=== PATIENT | male | born 1975 | race Caucasian/White ===

== ENCOUNTER 2019-09-12 09:56 | Outpatient (REF) | payer BC, SELFPAY ==
[2019-09-12 20:57] LABS: ALT 28 U/L (16-63); AST 19 U/L (15-37); Alkaline Phosphatase 67 U/L (46-116); Anion Gap 16.8 mmol/L (3-11); Bilirubin, Total 0.4 mg/dL (0.2-1.0); CO2 26.2 mmol/L (21.0-32.0); CREATININE 0.79 mg/dL (0.70-1.30); Calcium 8.8 mg/dL (8.5-10.1); Chloride 100 mmol/L (98-107); Cholesterol 242 mg/dL (<200); Glucose 111 mg/dL (74-106); HDL Cholesterol 34 mg/dL (40-60); Potassium 4.3 mmol/L (3.5-5.1); Sodium 143 mmol/L (136-145); Total Protein 7.3 g/dL (6.4-8.2); Triglyceride 486 mg/dL (<150)
[2019-09-12 20:59] LABS: Hemoglobin A1C 5.5 % (3.8-5.6)
[2019-09-12 21:19] LABS: BUN 14 mg/dL (7-18)
[2019-09-12 21:39] LABS: LDL CHOLESTEROL 129 mg/dL (<100)
== END 2019-09-12 10:16 ==
LOC: NCHCN 09:56
PROVIDERS: PCP Nurse Practitioner Family; Visit Provider Nurse Practitioner Family
DX: F32.9 Major depressive disorder, single episode, unspecified (principal); M77.9 Enthesopathy, unspecified; M54.5 Low back pain; E66.9 Obesity, unspecified
CPT/HCPCS: 80053; 80061; 83721; 83036

== ENCOUNTER 2019-10-16 09:34 | Outpatient (REF) | payer BC, SELFPAY ==
[2019-10-16 21:42] LABS: Calculated LDL 140 mg/dL (<100); Cholesterol 221 mg/dL (<200); HDL Cholesterol 43 mg/dL (40-60); Triglyceride 194 mg/dL (<150)
== END 2019-10-16 09:54 ==
LOC: NCHCN 09:34
PROVIDERS: PCP Nurse Practitioner Family; Visit Provider Nurse Practitioner Family
DX: Z00.00 Encounter for general adult medical examination without abnormal findings (principal); E78.5 Hyperlipidemia, unspecified; M77.9 Enthesopathy, unspecified; E66.9 Obesity, unspecified; F32.9 Major depressive disorder, single episode, unspecified
CPT/HCPCS: 80061

== ENCOUNTER 2019-12-30 10:50 | Outpatient (REF) | payer BC, SELFPAY ==
[2019-12-30 21:46] LABS: ALT 48 U/L (16-63); AST 22 U/L (15-37); Albumin 4.3 g/dL (3.4-5.0); Alkaline Phosphatase 72 U/L (46-116); Bilirubin, Total 1.5 mg/dL (0.2-1.0); Calculated LDL 86 mg/dL (<100); Cholesterol 164 mg/dL (<200); HDL Cholesterol 41 mg/dL (40-60); Total Protein 7.6 g/dL (6.4-8.2); Triglyceride 186 mg/dL (<150)
== END 2019-12-30 11:10 ==
LOC: NCHCN 10:50
PROVIDERS: PCP Nurse Practitioner Family; Visit Provider Nurse Practitioner Family
DX: E78.5 Hyperlipidemia, unspecified (principal)
CPT/HCPCS: 80061; 80076

== ENCOUNTER 2020-02-17 12:11 | Outpatient (REF) | payer BC, SELFPAY ==
[2020-02-17 21:02] LABS: ALT 57 U/L (16-63); AST 31 U/L (15-37); Alkaline Phosphatase 71 U/L (46-116); Bilirubin, Direct 0.14 mg/dL (0.00-0.20); Bilirubin, Total 0.6 mg/dL (0.2-1.0); Total Protein 7.3 g/dL (6.4-8.2)
== END 2020-02-17 12:31 ==
LOC: NCHCN 12:11
PROVIDERS: PCP Nurse Practitioner Family; Visit Provider Nurse Practitioner Family
DX: R17 Unspecified jaundice (principal)
CPT/HCPCS: 80076

== ENCOUNTER 2022-11-14 16:33 | Outpatient (REF) | payer OTHER, SELFPAY ==
[2022-11-14 16:01] LABS: HCT 48.6 % (40.0-50.0); HGB 16.3 g/dL (13.5-17.5); MCH 30.1 pg (27.0-33.0); MCHC 33.5 % (32.0-36.0); MCV 90 fL (80-95); MPV 10.8 fL (8.0-11.0); Platelet Count 287 10^3/uL (130-400); RBC 5.42 10^6/uL (4.36-5.78); RDW-SD 42.1 fL; WBC 8.36 10^3/uL (4.4-10.8)
[2022-11-14 16:29] LABS: Hemoglobin A1C 5.5 % (<5.7)
[2022-11-14 17:57] LABS: ALT 36 U/L (16-63); AST 26 U/L (15-37); Albumin 4.1 g/dL (3.4-5.0); Alkaline Phosphatase 75 U/L (46-116); BUN 12 mg/dL (7-18); Bilirubin, Total 1.2 mg/dL (0.2-1.0); CREATININE 0.9 mg/dL (0.70-1.30); Calcium 9.2 mg/dL (8.5-10.1); Calculated LDL 92 mg/dL (<100); Chloride 105 mmol/L (98-107); Cholesterol 165 mg/dL (<200); Estimated GFR 105.35 (mL/min/1.73m2); Glucose 101 mg/dL (74-106); HDL Cholesterol 46 mg/dL (40-60); Potassium 4.2 mmol/L (3.5-5.1); Sodium 142 mmol/L (136-145); TSH 2.77 uIU/mL (0.36-3.74); Total Protein 7.9 g/dL (6.4-8.2); Triglyceride 136 mg/dL (<150)
== END 2022-11-14 16:34 | disposition home or self-care (01) ==
LOC: NCHCN 16:33
PROVIDERS: PCP Nurse Practitioner Family; Visit Provider Nurse Practitioner Family
DX: E78.5 Hyperlipidemia, unspecified (principal); R03.0 Elevated blood-pressure reading, without diagnosis of hypertension; Z13.1 Encounter for screening for diabetes mellitus; Z13.29 Encounter for screening for other suspected endocrine disorder
CPT/HCPCS: 80053; 80061; 85027; 83036; 84443

== ENCOUNTER 2023-07-17 18:27 | Outpatient (REF) | payer OTHER, SELFPAY ==
[2023-07-17 14:41] LABS: BUN 13 mg/dL (7-18); CREATININE 1.2 mg/dL (0.70-1.30); Calcium 8.9 mg/dL (8.5-10.1); Chloride 106 mmol/L (98-107); Estimated GFR 74.13 (mL/min/1.73m2); Glucose 162 mg/dL (74-106); Sodium 143 mmol/L (136-145)
== END 2023-07-17 18:28 | disposition home or self-care (01) ==
LOC: NCHCN 18:27
PROVIDERS: PCP Nurse Practitioner Family; Visit Provider Nurse Practitioner Family
DX: I10 Essential (primary) hypertension (principal)
CPT/HCPCS: 80048

== ENCOUNTER 2023-11-20 15:39 | Outpatient (REF) | payer OTHER, SELFPAY ==
[2023-11-20 16:47] LABS: HCT 46.5 % (40.0-50.0); HGB 15.8 g/dL (13.5-17.5); MCH 30.6 pg (27.0-33.0); MCV 90 fL (80-95); MPV 10.5 fL (8.0-11.0); Platelet Count 256 10^3/uL (130-400); RBC 5.16 10^6/uL (4.36-5.78); RDW 12.5 % (11.8-14.1); RDW-SD 41.3 fL; WBC 7.74 10^3/uL (4.4-10.8)
[2023-11-20 17:02] LABS: ALT 40 U/L (16-63); AST 20 U/L (15-37); Albumin 3.9 g/dL (3.4-5.0); Alkaline Phosphatase 69 U/L (46-116); Anion Gap 11.8 mmol/L (3-11); BUN 13 mg/dL (7-18); Bilirubin, Total 0.9 mg/dL (0.2-1.0); CO2 26.2 mmol/L (21.0-32.0); CREATININE 0.9 mg/dL (0.70-1.30); Calcium 9.1 mg/dL (8.5-10.1); Calculated LDL 81 mg/dL (<100); Chloride 106 mmol/L (98-107); Cholesterol 172 mg/dL (<200); Glucose 109 mg/dL (74-106); HDL Cholesterol 45 mg/dL (40-60); Potassium 4.1 mmol/L (3.5-5.1); Sodium 144 mmol/L (136-145); Total Protein 7.4 g/dL (6.4-8.2); Triglyceride 233 mg/dL (<150)
[2023-11-20 17:07] LABS: Hemoglobin A1C 5.5 % (<5.7)
[2023-11-21 18:20] LABS: PSA, Screening 0.6 ng/mL (<=2.5)
[2023-11-24 10:10] LABS: Testosterone, Total 457 ng/dL (240-950)
== END 2023-11-20 15:40 | disposition home or self-care (01) ==
LOC: NCHCN 15:39
PROVIDERS: PCP Nurse Practitioner Family; Visit Provider Nurse Practitioner Family
DX: Z13.1 Encounter for screening for diabetes mellitus (principal); I10 Essential (primary) hypertension; E78.5 Hyperlipidemia, unspecified; Z12.5 Encounter for screening for malignant neoplasm of prostate; F52.21 Male erectile disorder; Z13.0 Encounter for screening for diseases of the blood and blood-forming organs and certain disorders involving the immune mechanism
CPT/HCPCS: 80053; 80061; 84153; 84403; 85027; 83036